=== PATIENT | male | born 1960 | race Caucasian/White ===

== ENCOUNTER → 2020-12-18 11:49 | Outpatient (CLI) | payer BC, SELFPAY ==
--- NOTE | ~2020-12-18 | XR_ITS ---
EXAMINATION: XR abdomen/kub 1V DATE: 12/18/2020 12:20 INDICATION: Kidney stones. TECHNIQUE: A supine view of the abdomen on 2 radiographs was obtained. COMPARISON: None. FINDINGS: There are no dilated loops of bowel. There is a large volume of stool in the colon. Calcifi cations in the pelvis are likely phleboliths. Right kidney is obscured by bowel. There are at least 8 calcifications overlying left kidney measuring up to 4 mm, likely stones. IMPRESSION: 1. Left kidney stones. Reviewed, dictated and finalized at location A. SERVICE OFFICER IMPRESSION: 1. Left kidney stones.
== END ==
PROVIDERS: PCP Family Medicine; Visit Provider Urology
DX: N20.0 Calculus of kidney (principal)
CPT/HCPCS: 74018

== ENCOUNTER → 2021-07-11 11:52 | Outpatient (CLI) | payer BC, SELFPAY ==
--- NOTE | ~2021-07-11 | XR_ITS ---
XR abdomen/kub 1V 07/11/2021 12:07 INDICATION: Renal stone TECHNIQUE: KUB COMPARISON: 12/18/2019 FINDINGS: Bowel gas pattern is normal. There is no evidence of free air, mass, organomegaly, ascites or obstruction. There are multiple punctate left renal stones. The right kidney is obscured by bowel content. Arch amount of retained fecal material in the colon. The bones appear intact. IMPRESSION: 1: Left nephrolithiasis.. Reviewed, dictated and finalized at location A. IMPRESSION: 1: Left nephrolithiasis..
== END ==
PROVIDERS: Visit Provider Urology
DX: N20.0 Calculus of kidney (principal)
CPT/HCPCS: 74018